=== PATIENT | female | born 1980 | race Two or more races ===

== ENCOUNTER 2018-07-15 21:33 | Emergency (ER) | payer OTHER ==
[2018-07-15] MEDS ORDERED: IBUPROFEN 800 MG TABLET PO ONE (22:04)
--- NOTE | 2018-07-15 22:30 | ER Document Report ---
ED Hand/Wrist Injury - General Chief Complaint: Finger Injury Stated Complaint: FINGER INJURY Time Seen by Provider: 07/15/18 21:55 Mode of Arrival: Ambulatory Information source: Patient Notes: 37-year-old female presented to ED for complaint of fifth finger pain on her right hand after she was play boxing with her son about 4 or 5:00 this evening and he blocked her jamming her fifth finger. The finger is very swollen and ecchymotic. She states she cannot move the finger and it felt like it popped at the time. Patient refuses to move the finger due to the pain. TRAVEL OUTSIDE OF THE [place] IN LAST 30 DAYS: No - HPI Injury to: Small finger Onset: This afternoon Where: Home Timing: Still present Quality of pain: Sharp, Throbbing Severity: Moderate Pain Level: 4 Context: Swelling, Other - Ecchymotic - Related Data Allergies/Adverse Reactions: No Known Allergies Allergy (Verified 03/28/12 14:54) Past Medical History - General Information source: Patient - Social History Smoking Status: Never Smoker Cigarette use (# per day): No Chew tobacco use (# tins/day): No Smoking Education Provided: No Frequency of alcohol use: None Drug Abuse: None Lives with: Family Family History: Reviewed & Not Pertinent Patient has suicidal ideation: No Patient has homicidal ideation: No - Past Medical History Cardiac Medical History: Reports: None Pulmonary Medical History: Reports: None EENT Medical History: Reports: None Neurological Medical History: Reports: None Endocrine Medical History: Reports: None Malignancy Medical History: Reports: None GI Medical History: Reports: None Musculoskeletal Medical History: Reports Hx Arthritis, Reports Hx Fibromyalgia, Reports Hx Musculoskeletal Trauma Skin Medical History: Reports None Psychiatric Medical History: Reports: Hx Depression, Hx Post Traumatic Stress Disorder Traumatic Medical History: Reports: None Infectious Medical History: Reports: None Past Surgical History: Reports: Hx Section, Hx Tubal Ligation - Immunizations Immunizations up to date: Yes Hx Diphtheria, Pertussis, Tetanus Vaccination: Yes Review of Systems - Review of Systems Constitutional: No symptoms reported EENT: No symptoms reported Cardiovascular: No symptoms reported Respiratory: No symptoms reported Gastrointestinal: No symptoms reported Genitourinary: No symptoms reported Female Genitourinary: No symptoms reported Musculoskeletal: Other - Pain swelling decreased range of motion to the right fifth finger Skin: Change in color - Fifth finger swollen and ecchymotic Hematologic/Lymphatic: No symptoms reported Neurological/Psychological: No symptoms reported -: Yes All other systems reviewed and negative Physical Exam - Vital signs Vitals: Temp Pulse Resp BP Pulse Ox 97.6 F 67 16 113/72 98 07/15/18 21:44 07/15/18 21:44 07/15/18 21:44 07/15/18 21:44 07/15/18 21:44 Interpretation: Normal - General General appearance: Appears well, Alert - HEENT Head: Normocephalic, Atraumatic Eyes: Normal Pupils: PERRL - Respiratory Respiratory status: No respiratory distress Chest status: Nontender Breath sounds: Normal Chest palpation: Normal - Cardiovascular Rhythm: Regular Heart sounds: Normal auscultation Murmur: No - Abdominal Inspection: Normal Distension: No distension Bowel sounds: Normal Tenderness: Nontender Organomegaly: No organomegaly - Back Back: Normal, Nontender - Extremities General upper extremity: Normal temperature General lower extremity: Normal inspection, Nontender, Normal color, Normal ROM , Normal temperature, Normal weight bearing. No: Ashley's sign Hand: Tender, Ecchymosis, No evidence of human bite, No evidence of FB, Swelling , Other - Decreased range of motion to the right fifth finger PIP joint - Neurological Neuro grossly intact: Yes Cognition: Normal Orientation: AAOx4 [place]ach[place] Coma Scale Eye Opening: Spontaneous Rachid Coma Scale Verbal: Oriented [place] Coma Scale Motor: Obeys Commands [place] Coma Scale Total: 15 Speech: Normal Motor strength normal: LUE, RUE, LLE, RLE Sensory: Normal - Psychological Associated symptoms: Normal affect, Normal mood - Skin Skin Temperature: Warm Skin Moisture: Dry Skin Color: Normal, Ecchymosis Location of irregularity: Extremities - Right fifth finger Course - Re-evaluation Re-evalutation: 07/15/18 23:31 Traction applied to the fifth finger with a felt pop to the PIP joint. Patient has more range of motion to her PIP joint. Finger was splinted. Patient was treated with ibuprofen and will instructed to follow-up with orthopedics for continued pain and discomfort to the fifth finger. Patient was given instructions for elevation ice and ibuprofen. - Vital Signs Vital signs: Temp Pulse Resp BP Pulse Ox 97.7 F 72 18 115/72 98 07/15/18 23:36 07/15/18 23:36 07/15/18 23:36 07/15/18 23:36 07/15/18 23:36 - Diagnostic Test Radiology reviewed: Image reviewed, Reports reviewed Procedures - Immobilization Right Finger Time completed: 23:35 Pre-Proc Neuro Vasc Exam: Normal Immobilizer type: Finger splint (Static) Performed by: LETY Post-Proc Neuro Vasc Exam: Normal Alignment checked and good: Yes - Joint Reduction/Fracture Care Right Finger 5th digit Time completed: 22:50 Consent obtained: Yes - verbal Conscious sedation: No Pre-procedure NV exam: No Post-procedure NV exam: Yes Post-reduction x-ray: Joint reduced Reduction attempts: 1 Complications: No Discharge - Discharge Clinical Impression: right 5th finger injury Condition: Stable Disposition: HOME, SELF-CARE Additional Instructions: Sprained Finger You have a finger sprain. A sprain is an over-stretching or tearing of the ligaments which guard the joints. The injury may require a few weeks of protection while it heals. The usual treatment for a finger sprain is a splint, ice packs, and elevation. As pain and swelling decrease, cautious use of the finger is allowed. Often the injured finger is taped to an uninjured finger to provide a "moving splint" during the later healing. Complete recovery takes about three or four weeks. Your physician has assessed the seriousness of the ligament injury in your finger, and has outlined the initial treatment plan. Understand that this treatment may change, depending on how your finger progresses. If further exams were recommended, it is important that you follow up as instructed. Call the doctor at any time if there is severe pain, increasing swelling, or numbness in the finger. Your finger was splinted while in the emergency room. If your finger feels better and no longer hurts the swelling goes down take the splint off. If your finger continues to hurt you need to follow-up with orthopedics. Ice & Elevation Apply ice packs frequently against the painful area. Many different schedules are recommended, such as "20 minutes on, 20 minutes off" or "one hour ice, two hours rest." If you need to work, you may need to go longer between ice treatments. You should plan to have the area ice packed AT LEAST one- fourth of the time. The ice should be applied over the wrap, tape, or splint, or over a layer of cloth -- not directly against the skin. Some ice bags have a built-in cloth and can be put directly on the skin. Your injured part should be elevated as much as possible over the next 48 hours. Try to keep the injury above the level of the heart. Avoid use of the injured area. Elevation and rest will decrease the swelling. Ibuprofen Ibuprofen is an excellent, safe drug for pain control. In addition, it has potent antiinflammatory effects which are beneficial, especially in the treatment of injuries, arthritis, or tendonitis. It's best to take ibuprofen with food. Persons with ulcer disease or allergy to aspirin should notify their physician of this before taking ibuprofen. Take the medication exactly as prescribed. Don't take additional doses unless instructed to do so by your doctor. If you develop wheezing, shortness of breath, hives, faintness, stomach pain, vomiting, or dark black stools, return for re-evaluation at once. FOLLOW-UP CARE: If you have been referred to a physician for follow-up care, call the physician s office for an appointment as you were instructed or within the next two days. If you experience worsening or a significant change in your symptoms, notify the physician immediately or return to the Emergency Department at any time for re-evaluation. Referrals: TUNDE OLIVA MD [Primary Care Provider] - Follow up as needed ALLY HANNON MD [ACTIVE STAFF] - Follow up as needed
--- NOTE | 2018-07-15 23:25 | RADIOLOGY REPORT (SQ) ---
EXAM DESCRIPTION: 3 views of the right fifth digit CLINICAL HISTORY: 37 years, Female, repeat COMPARISON: 3 views of the left fifth digit July 14, 2018 FINDINGS: There is a stable suspected volar plate fracture at the base of the fifth middle phalanx. There is chronic appearing deformity of the distal fifth phalangeal tuft. The bony alignment is normal. There is diffuse soft tissue swelling overlying the fifth digit. The distal radius/ ulna, carpal, metacarpal, and phalangeal bones are normal in appearance. The intercarpal, carpometacarpal, metacarpophalangeal, and interphalangeal joints are normal in appearance. IMPRESSION: 1. Stable suspected volar plate fracture at the base of the fifth middle phalanx. 2. Stable chronic deformity of the distal fifth phalangeal. 2. Diffuse soft tissue swelling overlying the fifth digit.
[2018-07-15 23:37] VITALS: BP 115/72
== END 2018-07-15 23:44 | disposition home or self-care (01) ==
LOC: ER 21:33
DX: S69.91XA Unspecified injury of right wrist, hand and finger(s), initial encounter (principal); W51.XXXA Accidental striking against or bumped into by another person, initial encounter; Z98.51 Tubal ligation status
CPT/HCPCS: 99283

== ENCOUNTER 2018-10-11 15:42 | Emergency (ER) | payer OTHER ==
[2018-10-11] MEDS ORDERED: METOCLOPRAMIDE HCL INJ/PF 10 MG/2 ML SDV IV ONE (17:31)
[2018-10-11] MEDS ORDERED: KETOROLAC TROMETHAMINE INJ/PF 30 MG/1 ML SDV IV ONE (17:31)
[2018-10-11] MEDS ORDERED: DEXAMETHASONE SOD PHOS INJ 10 MG/1 ML VIAL IV ONE (17:31)
[2018-10-11] MEDS ORDERED: NORMAL SALINE 1000 ML 1,000 ML IV ONE (17:31)
--- NOTE | 2018-10-11 17:31 | ER Document Report ---
ED Medical Screen (RME) - General Chief Complaint: Headache Stated Complaint: HEADACHE Time Seen by Provider: 10/11/18 17:26 Primary Care Provider: TUNDE OLIVA MD [Primary Care Provider] - Follow up as needed Notes: Patient is a 38-year-old female that presents to the emergency department for chief complaint of headache. Patient states that 3 days ago she had episode where she felt some heaviness in her chest, which has since dissipated and gone away no further episodes, and shortly after that she had a slowly building up headache, that had associated photophobia, phonophobia some nausea but no vomiting. Denies vision blurriness. Denies prior history of headaches, but does have fibromyalgia. No shortness of breath, fevers or chills reported. ROS: Other than noted above, the 12 point review of systems was reviewed with the patient and were negative, all pertinent findings are included in the HPI. PHYSICAL EXAMINATION: Vital signs reviewed. GENERAL: Well-appearing, well-nourished and in no acute distress, but does appear mildly uncomfortable HEAD: Atraumatic, normocephalic. EYES: Pupils equal round extraocular movements intact, conjunctiva are normal. ENT: Nares patent NECK: Normal range of motion CV: Heart regular rate and rhythm LUNGS: No respiratory distress Musculoskeletal: Normal range of motion NEUROLOGICAL: Normal speech PSYCH: Normal mood, normal affect. MDM: Patient seen and examined for rapid initial assessment. Vital signs reviewed. A comprehensive ED assessment and evaluation of the patient, analysis of test results and completion of the medical decision making process will be conducted by additional ED providers. *Note is created using voice recognition software and may contain spelling, syntax or grammatical errors. TRAVEL OUTSIDE OF THE [place] IN LAST 30 DAYS: No - Related Data Allergies/Adverse Reactions: No Known Allergies Allergy (Verified 03/28/12 14:54) Past Medical History - Social History Chew tobacco use (# tins/day): No Frequency of alcohol use: None Drug Abuse: None Pulmonary Medical History: Denies: Hx Tuberculosis Renal/ Medical History: Denies: Hx Peritoneal Dialysis Musculoskeltal Medical History: Reports Hx Arthritis, Reports Hx Fibromyalgia, Reports Hx Musculoskeletal Trauma Psychiatric Medical History: Reports: Hx Depression, Hx Post Traumatic Stress Disorder Past Surgical History: Reports: Hx Section, Hx Gynecologic Surgery, Hx Tubal Ligation - Immunizations Immunizations up to date: Yes Hx Diphtheria, Pertussis, Tetanus Vaccination: Yes Physical Exam - Vital signs Vitals: Temp Pulse Resp BP Pulse Ox 98.6 F 75 16 114/65 97 10/11/18 16:10 10/11/18 16:10 10/11/18 16:10 10/11/18 16:10 10/11/18 16:10 Course - Vital Signs Vital signs: Temp Pulse Resp BP Pulse Ox 98.6 F 75 16 114/65 97 10/11/18 16:10 10/11/18 16:10 10/11/18 17:22 10/11/18 16:10 10/11/18 16:10 Doctor's Discharge - Discharge Referrals: TUNDE OLIVA MD [Primary Care Provider] - Follow up as needed
[2018-10-11] MEDS ORDERED: MAGNESIUM SULFATE/D5W 1 GM/100 ML RTUPB IV ONE (17:32)
[2018-10-11 19:40] VITALS: BP 117/65
--- NOTE | 2018-10-11 19:42 | ER Document Report ---
ED Headache - General Chief Complaint: Headache Stated Complaint: HEADACHE Time Seen by Provider: 10/11/18 17:26 Primary Care Provider: TUNDE OLIVA MD [Primary Care Provider] - Follow up as needed Mode of Arrival: Ambulatory Information source: Patient Notes: 38-year-old female presented to ED for complaint of headache for 3 days. She states the pain is all over her head and all around her face. She states she charged with chest pain on Thursday but no longer has that. She states she started Humira on 222. She not sure if this had anything to do with headache. Patient was seen in pit by the physician and started on medications. Her pain level was a 4 when she was first seen it was down to a 3 by the time I saw her. Patient was alert oriented respirations regular and unlabored speaking in full sentences walks with a even steady gait. Pupils equal and react to light. TRAVEL OUTSIDE OF THE [place] IN LAST 30 DAYS: No - HPI Patient complains to provider of: Headache, Facial pain Onset: Other - 3 days Onset was: Gradual Timing: Better Quality of pain: Achy, Sharp Severity: Moderate Pain Level: 4 Associated symptoms: Other Exacerbated by: Light Similar symptoms previously: Yes Recently seen / treated by doctor: Yes - Related Data Allergies/Adverse Reactions: No Known Allergies Allergy (Verified 03/28/12 14:54) Past Medical History - General Information source: Patient - Social History Smoking Status: Never Smoker Chew tobacco use (# tins/day): No Frequency of alcohol use: None Drug Abuse: None Family History: Reviewed & Not Pertinent Patient has suicidal ideation: No Patient has homicidal ideation: No - Past Medical History Cardiac Medical History: Reports: None Pulmonary Medical History: Reports: None EENT Medical History: Reports: None Neurological Medical History: Reports: None Endocrine Medical History: Reports: None Renal/ Medical History: Reports: None Malignancy Medical History: Reports: None GI Medical History: Reports: None Musculoskeletal Medical History: Reports Hx Arthritis, Reports Hx Fibromyalgia Skin Medical History: Reports None Psychiatric Medical History: Reports: Hx Depression, Hx Post Traumatic Stress Disorder Traumatic Medical History: Reports: None Infectious Medical History: Reports: None Past Surgical History: Reports: Hx Section - X2, Hx Tubal Ligation - Immunizations Immunizations up to date: Yes Hx Diphtheria, Pertussis, Tetanus Vaccination: Yes Review of Systems - Review of Systems Constitutional: No symptoms reported EENT: No symptoms reported Cardiovascular: No symptoms reported Respiratory: No symptoms reported Gastrointestinal: No symptoms reported Genitourinary: No symptoms reported Female Genitourinary: No symptoms reported Musculoskeletal: No symptoms reported Skin: No symptoms reported Hematologic/Lymphatic: No symptoms reported Neurological/Psychological: Headaches -: Yes All other systems reviewed and negative Physical Exam - Vital signs Vitals: Temp Pulse Resp BP Pulse Ox 98.6 F 75 16 114/65 97 10/11/18 16:10 10/11/18 16:10 10/11/18 16:10 10/11/18 16:10 10/11/18 16:10 Interpretation: Normal - General General appearance: Appears well, Alert - HEENT Head: Normocephalic, Atraumatic Eyes: Normal Pupils: PERRL Ears: Normal External canal: Normal Tympanic membrane: Normal Nasal: Normal Mouth/Lips: Normal Mucous membranes: Normal Pharynx: Normal Neck: Normal - Respiratory Respiratory status: No respiratory distress Chest status: Nontender Breath sounds: Normal Chest palpation: Normal - Cardiovascular Rhythm: Regular Heart sounds: Normal auscultation Murmur: No - Abdominal Inspection: Normal Distension: No distension Bowel sounds: Normal Tenderness: Nontender Organomegaly: No organomegaly - Back Back: Normal, Nontender - Extremities General upper extremity: Normal inspection, Nontender, Normal color, Normal ROM, Normal temperature General lower extremity: Normal inspection, Nontender, Normal color, Normal ROM, Normal temperature, Normal weight bearing. No: Ashley's sign - Neurological Neuro grossly intact: Yes Cognition: Normal Orientation: AAOx4 [place] Coma Scale Eye Opening: Spontaneous [place] Coma Scale Verbal: Oriented [place] Coma Scale Motor: Obeys Commands Rachid Coma Scale Total: 15 Speech: Normal Cranial nerves: Normal Cerebellar coordination: Normal Motor strength normal: LUE, RUE, LLE, RLE Additional motor exam normals: Equal cone winder Babinski reflex: Normal (flexor plantar) Sensory: Normal Biceps - Reflex grade: 2 = Normal Triceps - Reflex grade: 2 = Normal Brachioradialis - Reflex grade: 2 = Normal Knee - Reflex grade: 2 = Normal Ankle - Reflex grade: 2 = Normal - Psychological Associated symptoms: Normal affect, Normal mood - Skin Skin Temperature: Warm Skin Moisture: Dry Skin Color: Normal Course - Re-evaluation Re-evalutation: 10/11/18 19:48 After performing a Medical Screening Examination, I estimate there is LOW risk for ACUTE GLAUCOMA, TEMPORAL ARTERITIS, MENINGITIS, INCRANIAL HEMORRHAGE, or ISCHEMIC STROKE thus I consider the discharge disposition reasonable. I have reevaluated this patient multiple times and no significant life threatening changes are noted. The patient and I have discussed the diagnosis and risks, and we agree with discharging home with close follow-up with the understanding that symptoms and presentations can change. We also discussed returning to the Emergency Department immediately if new or worsening symptoms occur. We have discussed the symptoms which are most concerning (e.g., changing or worsening symptoms, new numbness or weakness, vomiting, fever) that necessitate immediate return. - Vital Signs Vital signs: Temp Pulse Resp BP Pulse Ox 98.6 F 75 16 114/65 97 10/11/18 16:10 10/11/18 16:10 10/11/18 17:22 10/11/18 16:10 10/11/18 16:10 Discharge - Discharge Clinical Impression: Headache Qualifiers: Headache type: unspecified Headache chronicity pattern: unspecified pattern Intractability: not intractable Qualified Code(s): R51 - Headache Condition: Stable Disposition: HOME, SELF-CARE Additional Instructions: HEADACHE: The physician does not feel that the headache you are experiencing has a serious underlying cause. Most headaches are due to emotional stress, with resultant muscle tension (tension headache). Occasionally, headaches are secondary to changes in the blood vessels of the scalp (vascular headache and migraine headache). Sometimes, a headache is the first symptom of another developing illness, such as a viral infection. You have no evidence of stroke, bleeding, meningitis, or other serious cause of your headache. The treatment of headaches varies with the severity and cause of the pain. Not all headaches need pain shots. In fact, there is evidence that using narcotics for headaches may make them worse in the long run. The physician will determine the therapy that's in your best interest. If you develop a fever, if the headache is different from any you've previously experienced, or if the headache progressively worsens, then call your physician at once or go to the emergency room. REGLAN (METOCLOPRAMIDE): Reglan has been prescribed. This medicine affects the stomach and intestines. It can be used to treat nausea and vomiting, to prevent reflux of stomach acid up into the esophagus, or to increase the contractions of the stomach and intestines. It is often prescribed for esophagitis, and for paralysis of the stomach in diabetics. Reglan can cause either mild restlessness or drowsiness. You should contact the doctor at once if you become extremely restless, anxious, or cannot sleep, or if you develop uncontrollable motions of the lips, tongue, or jaw. Do not take alcohol with this medicine. Do not drive or operate machinery until you have been taking this medicine long enough to know how it affects you. Call the doctor if you develop abdominal pains, lightheadedness, black stool, or blood in the stool or vomitus. TORADOL INJECTION: You have been given an injection of ketorolac tromethamine (Toradol). This is an excellent, safe drug for pain control. It also has potent antiinflammatory action. You should have significant pain relief within about one hour. Toradol is not addicting and is non-sedating. It does not interfere with driving or work. Call or return if you develop itching, hives, shortness of breath, or rash. STEROID MEDICATION: You have been given a medicine of the cortisone/steroid class. This medication is used to control inflammation or allergy. It is usually only given for a short period of time, until the acute process subsides. There are usually no side effects from short-term use of cortisone-like medications. Some persons feel an increased sense of well-being and are not sleepy at bedtime. Long-term use of cortisone medications is best avoided, unless required for a severe condition. If your condition does not remit, or relapses after the course of corticosteroid medication, you should consult your physician. Intravenous (IV) Fluids As part of your care today, you received intravenous (IV) fluids. IV fluids are administered to patients who are dehydrated or to those who have certain chemical (electrolyte) abnormalities that need correcting. FOLLOW-UP CARE: If you have been referred to a physician for follow-up care, call the physicians office for an appointment as you were instructed or within the next two days. If you experience worsening or a significant change in your symptoms, notify the physician immediately or return to the Emergency Department at any time for re-evaluation. Forms: Return to Work Referrals: TUNDE OLIVA MD [Primary Care Provider] - Follow up in 3-5 days
--- NOTE | 2018-10-11 21:46 | EKG REPORT ---
SEVERITY:- NORMAL ECG - SINUS RHYTHM : Confirmed by: Magaly Patten MD 11-Oct-2018 21:45:14
== END 2018-10-11 19:43 | disposition home or self-care (01) ==
LOC: ER 15:42
DX: R51 Headache (principal)
CPT/HCPCS: 93005; 99284; 96361; 96375; 96365; 93010; J1885; J2765; J3475; J7030; J1100

== ENCOUNTER 2018-10-20 09:35 | Emergency (ER) | payer OTHER ==
[2018-10-20] MEDS ORDERED: ASPIRIN 81 MG TABLET, CHEWABLE PO ONE (10:07)
--- NOTE | 2018-10-20 10:11 | ER Document Report ---
ED Medical Screen (RME) - General Chief Complaint: Epigastric Pain Stated Complaint: UPPER ABDOMINAL PAIN Primary Care Provider: TUNDE OLIVA MD [Primary Care Provider] - Follow up as needed TRAVEL OUTSIDE OF THE [place] IN LAST 30 DAYS: No - HPI Notes: 10/20/18 10:09 Patient complained of 2 days history of left chest pain radiating to her back. She denies any history of trauma or fall. She is taking Humira for ankylosing spondylitis. Patient is short of breath and hyperventilating in the ED. Exam is unremarkable except for tenderness to palpation left upper quadrant of the abdomen. Patient also denies any nausea vomiting or diarrhea. - Related Data Allergies/Adverse Reactions: No Known Allergies Allergy (Verified 10/20/18 09:39) Past Medical History Pulmonary Medical History: Denies: Hx Tuberculosis Renal/ Medical History: Denies: Hx Peritoneal Dialysis Musculoskeltal Medical History: Reports Hx Arthritis, Reports Hx Fibromyalgia, Reports Hx Musculoskeletal Trauma Psychiatric Medical History: Reports: Hx Depression, Hx Post Traumatic Stress Disorder Past Surgical History: Reports: Hx Section - X2, Hx Gynecologic Surgery, Hx Tubal Ligation - Immunizations Immunizations up to date: Yes Hx Diphtheria, Pertussis, Tetanus Vaccination: Yes Physical Exam - Vital signs Vitals: Temp Pulse Resp BP Pulse Ox 97.7 F 80 18 105/59 L 100 10/20/18 09:44 10/20/18 09:44 10/20/18 09:44 10/20/18 09:44 10/20/18 09:44 Course - Vital Signs Vital signs: Temp Pulse Resp BP Pulse Ox 97.7 F 80 18 105/59 L 100 10/20/18 09:44 10/20/18 09:44 10/20/18 09:44 10/20/18 09:44 10/20/18 09:44 Doctor's Discharge - Discharge Referrals: TUNDE OLIVA MD [Primary Care Provider] - Follow up as needed
--- NOTE | 2018-10-20 10:37 | RADIOLOGY REPORT (SQ) ---
EXAM DESCRIPTION: CHEST SINGLE VIEW COMPLETED DATE/TIME: 10/20/2018 10:21 am REASON FOR STUDY: Chest pain COMPARISON: None. EXAM PARAMETERS: NUMBER OF VIEWS: One view. TECHNIQUE: Single frontal radiographic view of the chest acquired. RADIATION DOSE: NA LIMITATIONS: None. FINDINGS: LUNGS AND PLEURA: No opacities, masses or pneumothorax. No pleural effusion. MEDIASTINUM AND HILAR STRUCTURES: No masses. Contour normal. HEART AND VASCULAR STRUCTURES: Heart normal in size. Normal vasculature. BONES: No acute findings. HARDWARE: None in the chest. OTHER: No other significant finding. IMPRESSION: NO ACUTE RADIOGRAPHIC FINDING IN THE CHEST. TECHNICAL DOCUMENTATION: JOB ID: [id number] [employer]- All Rights Reserved Reading location - IP/workstation name: [email or web address]
[2018-10-20 10:53] LABS: APPEARANCE,URINE SLIGHTLY-CLOUDY; BILIRUBIN,URINE NEGATIVE (NEGATIVE); COLOR,URINE YELLOW; GLUCOSE, URINE NEGATIVE (NEGATIVE); KETONES,URINE NEGATIVE (NEGATIVE); LEUKOCYTE ESTERASE,URINE NEGATIVE (NEGATIVE); NITRITE,URINE NEGATIVE (NEGATIVE); PROTEIN,URINE NEGATIVE (NEGATIVE); URINE SPECIFIC GRAVITY 1.026; UROBILINOGEN,URINE NEGATIVE mg/dL (<2.0)
[2018-10-20 10:54] LABS: ABSOLUTE BASOPHILS # (AUTO) 0.1 10^3/uL (0.0-0.2); ABSOLUTE EOSINOPHILS # (AUTO) 0.2 10^3/uL (0.0-0.6); ABSOLUTE LYMPHOCYTES (AUTO) 1.5 10^3/uL (0.5-4.7); ABSOLUTE MONOCYTES (AUTO) 0.5 10^3/uL (0.1-1.4); ABSOLUTE NEUT (AUTO) 5.6 10^3/uL (1.7-8.2); BASOPHILS % (AUTO) 1.7 % (0-2); EOSINOPHILS % (AUTO) 3.1 % (0-6); HEMATOCRIT 40.7 % (36.0-47.0); HEMOGLOBIN 13.7 g/dL (12.0-15.5); LYMPHOCYTES % (AUTO) 18.8 % (13-45); MEAN CORPUSCULAR HEMOGLOBIN 27.2 pg (27.0-33.4); MEAN CORPUSCULAR HGB CONC 33.8 g/dL (32.0-36.0); MEAN CORPUSCULAR VOLUME 81 fl (80-97); MONOCYTES % (AUTO) 6.4 % (3-13); PLATELET COUNT 254 10^3/uL (150-450); RED BLOOD COUNT 5.05 10^6/uL (3.72-5.28); RED CELL DISTRIBUTION WIDTH 15.4 % (11.5-14.0); TOTAL CELLS COUNTED % (AUTO) 100 %
[2018-10-20 10:57] LABS: INTERNATIONAL RATION (INR) 0.99; PROTHROMBIN TIME 13.6 SEC (11.4-15.4)
[2018-10-20] MEDS ORDERED: NORMAL SALINE 1000 ML 1,000 ML IV ONE (10:59)
[2018-10-20] MEDS ORDERED: FENTANYL CITRATE INJ/PF 100 MCG/2 ML AMPUL IV ONE (11:01)
--- NOTE | 2018-10-20 11:03 | ER Document Report ---
ED Cardiac - General Chief Complaint: Epigastric Pain Stated Complaint: UPPER ABDOMINAL PAIN Time Seen by Provider: 10/20/18 10:23 Primary Care Provider: TUNDE OLIVA MD [Primary Care Provider] - Follow up tomorrow Mode of Arrival: Ambulatory Information source: Patient Notes: Patient presents complaining of left-sided chest pain that started yesterday. Patient denies any nausea or vomiting. Patient reports mild cough. Patient states she noticed some blood in her nasal drainage this morning. Patient has had recent sick contacts. Patient reports flying to [place] and back this past week. Patient denies any previous history of DVT or PE. Patient complains of significant pain with inspiration or movement of her chest area. TRAVEL OUTSIDE OF THE [place] IN LAST 30 DAYS: No - HPI Patient complains to provider of: Chest pain, Shortness of breath Is the pain a: New problem Quality of pain: Constant, Sharp, Stabbing Pain level currently: 5 Cardiac risk factors: denies: Diabetes, Smoker, + Family history Positive cardiac history: No Associated symptoms: Shortness of breath. denies: Abdominal pain, Back pain, Lightheaded, Nausea/vomiting Exacerbated by: Coughing, Deep breaths, Torso movement Relieved by: Nothing Similar symptoms previously: No Recently seen / treated by doctor: No - Related Data Allergies/Adverse Reactions: No Known Allergies Allergy (Verified 10/20/18 09:39) Past Medical History - General Information source: Patient - Social History Smoking Status: Never Smoker Chew tobacco use (# tins/day): No Frequency of alcohol use: None Drug Abuse: None Occupation: None Lives with: Family Family History: Reviewed & Not Pertinent Patient has suicidal ideation: No Patient has homicidal ideation: No - Medical History Medical History: Other - Ankylosing spondylitis Pulmonary Medical History: Denies: Hx Tuberculosis Renal/ Medical History: Denies: Hx Peritoneal Dialysis Musculoskeletal Medical History: Reports Hx Arthritis, Reports Hx Fibromyalgia, Reports Hx Musculoskeletal Trauma Psychiatric Medical History: Reports: Hx Depression, Hx Post Traumatic Stress Disorder Past Surgical History: Reports: Hx Breast Surgery - augmentation, Hx Section - X2, Hx Gynecologic Surgery, Hx Tubal Ligation - Immunizations Immunizations up to date: Yes Hx Diphtheria, Pertussis, Tetanus Vaccination: Yes Review of Systems - Review of Systems Constitutional: No symptoms reported. denies: Fever, Recent illness EENT: No symptoms reported Cardiovascular: Chest pain Respiratory: Cough, Short of breath Gastrointestinal: No symptoms reported. denies: Abdominal pain, Nausea, Vomiting Genitourinary: No symptoms reported. denies: Dysuria Female Genitourinary: No symptoms reported Musculoskeletal: No symptoms reported. denies: Back pain, Leg swelling Skin: No symptoms reported Hematologic/Lymphatic: No symptoms reported Neurological/Psychological: No symptoms reported Physical Exam - Vital signs Vitals: Temp Pulse Resp BP Pulse Ox 97.7 F 80 18 105/59 L 100 10/20/18 09:44 10/20/18 09:44 10/20/18 09:44 10/20/18 09:44 10/20/18 09:44 - General General appearance: Alert, Anxious In distress: Mild - HEENT Head: Normocephalic, Atraumatic Eyes: Normal Conjunctiva: Normal Nasal: Normal Mouth/Lips: Normal Mucous membranes: Normal Pharynx: Normal Neck: Normal - Respiratory Respiratory status: Tachypnea Chest status: Tender, Pain on movement, Pain with deep breathing Breath sounds: Normal Chest palpation: Tender - Cardiovascular Rhythm: Regular Heart sounds: S1 appreciated, S2 appreciated Murmur: No - Abdominal Inspection: Normal Distension: No distension Bowel sounds: Normal Tenderness: Nontender Organomegaly: No organomegaly - Back Back: Normal, Nontender. No: CVA tenderness - Extremities General upper extremity: Normal inspection, Normal ROM General lower extremity: Normal inspection, Normal ROM. No: Edema - Neurological Neuro grossly intact: Yes Cognition: Normal Chichester Coma Scale Eye Opening: Spontaneous Chichester Coma Scale Verbal: Oriented Rachid Coma Scale Motor: Obeys Commands Rachid Coma Scale Total: 15 - Psychological Associated symptoms: Anxious - Skin Skin Temperature: Warm Skin Moisture: Dry Skin Color: Normal Course - Re-evaluation Re-evalutation: 10/20/18 14:30 Patient resting more comfortably at this time. Patient updated regarding test results at this time. Warm blanket provided. 10/20/18 16:[address] Luther regarding patient presentation and diagnostic evaluation. No concern for PE. No concern for any cardiac source to her pain symptoms at this time. Recommends outpatient follow-up with primary doctor for recheck. The patient has atypical chest pain as the patient's chest pain is not suggestive of pulmonary embolus, cardiac ischemia, aortic dissection, or other serious etiology. Given the extremely low risk of these diagnoses for the test in evaluation for these possibilities does not appear to be indicated at this time. Patient has been instructed to return if the symptoms worsen or change in any way. - Vital Signs Vital signs: Temp Pulse Resp BP Pulse Ox 97.7 F 80 17 112/73 97 10/20/18 09:44 10/20/18 09:44 10/20/18 14:01 10/20/18 14:01 10/20/18 14:01 - Laboratory Result Diagrams: 10/20/18 10:30 10/20/18 10:30 Laboratory results interpreted by me: 10/20/18 10/20/18 10/20/18 10:30 10:30 10:30 RDW 15.4 H APTT 36.0 H Sodium 133.7 L Glucose 119 H 10/20/18 16:03 Labs- Entire Visit 10/20/18 10/20/18 10/20/18 10:30 10:30 10:30 WBC 8.0 RBC 5.05 Hgb 13.7 Hct 40.7 MCV 81 MCH 27.2 MCHC 33.8 RDW 15.4 H Plt Count 254 Seg Neutrophils % 70.0 Lymphocytes % 18.8 Monocytes % 6.4 Eosinophils % 3.1 Basophils % 1.7 Absolute Neutrophils 5.6 Absolute Lymphocytes 1.5 Absolute Monocytes 0.5 Absolute Eosinophils 0.2 Absolute Basophils 0.1 PT 13.6 INR 0.99 APTT 36.0 H D-Dimer 0.29 Sodium 133.7 L Potassium 4.1 Chloride 105 Carbon Dioxide 23 Anion Gap 6 BUN 11 Creatinine 0.68 Est GFR ( Amer) > 60 Est GFR (Non-Af Amer) > 60 Glucose 119 H Calcium 9.4 Total Bilirubin 0.8 Direct Bilirubin 0.1 Neonat Total Bilirubin Not Reportable Neonat Direct Bilirubin Not Reportable Neonat Indirect Bili Not Reportable AST 17 ALT 25 Alkaline Phosphatase 98 Creatine Kinase 31 CK-MB (CK-2) Troponin I Total Protein 7.8 Albumin 4.3 Lipase 77.9 Urine Color Urine Appearance Urine pH Ur Specific [place] Urine Protein Urine Glucose (UA) Urine Ketones Urine Blood Urine Nitrite Urine Bilirubin Urine Urobilinogen Ur Leukocyte Esterase Urine WBC (Auto) Urine RBC (Auto) Squamous Epi Cells Auto Urine Mucus (Auto) Urine Ascorbic Acid Urine HCG, Qual 03/13/19 03/13/19 03/13/19 10:30 10:30 14:40 WBC RBC Hgb Hct MCV MCH MCHC RDW Plt Count Seg Neutrophils % Lymphocytes % Monocytes % Eosinophils % Basophils % Absolute Neutrophils Absolute Lymphocytes Absolute Monocytes Absolute Eosinophils Absolute Basophils PT INR APTT D-Dimer Sodium Potassium Chloride Carbon Dioxide Anion Gap BUN Creatinine Est GFR ( Amer) Est GFR (Non-Af Amer) Glucose Calcium Total Bilirubin Direct Bilirubin Neonat Total Bilirubin Neonat Direct Bilirubin Neonat Indirect Bili AST ALT Alkaline Phosphatase Creatine Kinase CK-MB (CK-2) 0.40 Troponin I < 0.012 < 0.012 Total Protein Albumin Lipase Urine Color YELLOW Urine Appearance SLIGHTLY-CLOUDY Urine pH 5.0 Ur Specific [place] 1.026 Urine Protein NEGATIVE Urine Glucose (UA) NEGATIVE Urine Ketones NEGATIVE Urine Blood NEGATIVE Urine Nitrite NEGATIVE Urine Bilirubin NEGATIVE Urine Urobilinogen NEGATIVE Ur Leukocyte Esterase NEGATIVE Urine WBC (Auto) 1 Urine RBC (Auto) 0 Squamous Epi Cells Auto 3 Urine Mucus (Auto) MOD Urine Ascorbic Acid NEGATIVE Urine HCG, Qual NEGATIVE - Diagnostic Test Radiology reviewed: Image reviewed, Reports reviewed Discharge - Discharge Clinical Impression: Chest pain Qualifiers: Chest pain type: unspecified Qualified Code(s): R07.9 - Chest pain, unspecified Cholelithiasis Qualifiers: Cholelithiasis location: gallbladder Cholecystitis presence: without cholecystitis Biliary obstruction: without biliary obstruction Qualified Code(s): K80.20 - Calculus of gallbladder without cholecystitis without obstruction Condition: Stable Disposition: HOME, SELF-CARE Instructions: Chest Pain of Unclear Cause ([facility]), Gallbladder Disease ([facility]) Additional Instructions: Return immediately for any new or worsening symptoms Followup with your primary care provider, call tomorrow to make a followup appointment Follow-up with a manufacturing area manager for recheck, call tomorrow for follow-up Your ultrasound showed gallstones in the gallbladder. You should return for any fever increased abdominal pain yellowing of the skin or eyes or persistent vomiting. Prescriptions: Diazepam [Valium 5 mg Tablet] 5 mg PO BID PRN #10 tablet PRN Reason: Referrals: TUNDE OLIVA MD [Primary Care Provider] - Follow up tomorrow
[2018-10-20 11:08] LABS: ALANINE AMINOTRANSFERASE 25 U/L (9-52); ALBUMIN 4.3 g/dL (3.5-5.0); ALKALINE PHOSPHATASE 98 U/L (38-126); ANION GAP 6 (5-19); ASPARTATE AMINO TRANSFERASE 17 U/L (14-36); BILIRUBIN,DIRECT 0.1 mg/dL (0.0-0.4); BILIRUBIN,TOTAL 0.8 mg/dL (0.2-1.3); BLOOD UREA NITROGEN 11 mg/dL (7-20); CALCIUM 9.4 mg/dL (8.4-10.2); CARBON DIOXIDE 23 mmol/L (22-30); CHLORIDE 105 mmol/L (98-107); CREATINE KINASE 31 U/L (30-135); GLUCOSE 119 mg/dL (75-110); LIPASE 77.9 U/L (23-300); POTASSIUM 4.1 mmol/L (3.6-5.0); SODIUM 133.7 mmol/L (137-145); TOTAL PROTEIN 7.8 g/dL (6.3-8.2)
[2018-10-20 11:22] LABS: D-DIMER 0.29 ug/mL (0.00-0.50)
[2018-10-20 11:28] LABS: TROPONIN I < 0.012 ng/mL
--- NOTE | 2018-10-20 12:14 | RADIOLOGY REPORT (SQ) ---
EXAM DESCRIPTION: CTA CHEST COMPLETED DATE/TIME: 10/20/2018 11:41 am REASON FOR STUDY: cp, dyspnea COMPARISON: 03/29/2012 TECHNIQUE: CT scan of the chest performed using helical scanning technique with dynamic intravenous contrast injection. Images reviewed with lung, soft tissue and bone windows. Reconstructed coronal and sagittal MPR images reviewed. Additional 3 dimensional post-processing performed to develop Maximal Intensity Projection images (ID P). All images stored on PACS. All CT scanners at this facility use dose modulation, iterative reconstruction, and/or weight based d osing when appropriate to reduce radiation dose to as low as reasonably achievable (ALARA). [facility]: Dose Right [facility]: CareDose [facility]: Dose Right [facility]: Teradose 4D [facility]: [place] CONTRAST TYPE AND DOSE: contrast/concentration: Isovue 350.00 mg/ml; Total Contrast Delivered: 75.0 ml; Total Saline Delivered: 80.0 ml Contrast bolus optimized for the pulmonary arteries. Not diagnostic for the aorta. RENAL FUNCTION: BUN 11 creatinine 0.68 RADIATION DOSE: CT Rad equipment meets quality standard of care and radiation dose reduction techniq ues were employed. CTDIvol: 16.5 - 20.5 mGy. DLP: 815 mGy-cm. . LIMITATIONS: None. FINDINGS: LUNGS AND PLEURA: No masses, infiltrates, or pneumothorax. No pleural effusions or pleura l calcifications. AORTA AND GREAT VESSELS: No aneurysm. Contrast bolus not optimized for the aorta. HEART: No pericardial effusion. No significant coronary artery calcifications. PULMONARY ARTERIES: No emboli visualized in the main pulmonary arteries or the segmental branches. HILAR AND MEDIASTINAL STRUCTURES: No identified masses or abnormal nodes. HARDWARE: None in the chest. UPPER ABDOMEN: Cholelithiasis. THYROID AND OTHER SOFT TISSUES: No masses. No adenopathy. BONES: No acute or significant finding. 3D MIPS: Confirm above findings. OTHER: No other significant finding. IMPRESSION: NORMAL CTA OF THE CHEST. NO PULMONARY EMBOLI. CHOLELITHIASIS. COMMENT: Quality ID # [id number]: Final reports with documentation of one or more dose reduction techniques (e.g., Automated exposure control, adjustment of the mA and/or kV according to patient size, use of iterative reconstruction technique) TECHNICAL DOCUMENTATION: JOB ID: [id number] [employer]- All Rights Reserved Reading location - IP/workstation name: [email or web address]
[2018-10-20] MEDS ORDERED: NORMAL SALINE 1000 ML 1,000 ML IV PRN (12:39)
--- NOTE | 2018-10-20 13:07 | EKG REPORT ---
SEVERITY:- NORMAL ECG - SINUS RHYTHM : Confirmed by: Neto Batista MD 20-Oct-2018 13:06:53
--- NOTE | 2018-10-20 15:23 | RADIOLOGY REPORT (SQ) ---
EXAM DESCRIPTION: U/S ABDOMEN LIMITED W/O DOP COMPLETED DATE/TIME: 10/20/2018 3:12 pm REASON FOR STUDY: upper abd pain COMPARISON: None. TECHNIQUE: Dynamic and static grayscale images acquired of the abdomen and recorded on PACS. Additio nal selected color Doppler and spectral images recorded. LIMITATIONS: None. FINDINGS: PANCREAS: No masses. Visualized pancreatic duct normal caliber. LIVER: No masses. Echotexture normal. LIVER VASCULATURE: Normal directional flow of the main portal vein and hepatic veins. GALLBLADDER: Gallstone(s). No pericholecystic fluid. No wall thickening. ULTRASOUND-DETECTED SLOAN'S SIGN: Negative. INTRAHEPATIC DUCTS AND COMMON DUCT: CBD and intrahepatic ducts normal caliber. No filling defects. INFERIOR VENA CAVA: Normal flow. AORTA: No aneurysm. RIGHT KIDNEY: Normal size. Normal echogenicity. No solid or suspicious masses. No hydronephrosis. No calcifications. PERITONEAL AND RIGHT PLEURAL SPACE: No ascites or effusions. OTHER: No other significant findings. IMPRESSION: GALLSTONES. NO OTHER SIGNIFICANT FINDINGS. TECHNICAL DOCUMENTATION: JOB ID: [id number] [employer]- All Rights Reserved Reading location - IP/workstation name: [email or web address]
[2018-10-20] MEDS ORDERED: DIAZEPAM 5 MG TABLET PO ONE (16:15)
[2018-10-20 16:43] VITALS: BP 112/73
== END 2018-10-20 16:50 | disposition home or self-care (01) ==
LOC: ER 09:35
DX: R07.89 Other chest pain (principal); K80.20 Calculus of gallbladder without cholecystitis without obstruction; R05 Cough; R09.89 Other specified symptoms and signs involving the circulatory and respiratory systems; R06.02 Shortness of breath
CPT/HCPCS: 93005; 99284; 36415; 82553; 82550; 83690; 85025; 85610; 85730; 81025; 80053; 81001; 84484; 85379; 71045; 76705; 71275; 93010; J3010; J7030